=== PATIENT | female | born 1950 | race Caucasian/White ===

== ENCOUNTER 2019-10-01 07:17 | Inpatient (IN) ==
[2019-10-01] MEDS ORDERED: CeFAZolin Syr 2,000MG/20 ML 2,000 MG/20 ML SYRINGE IVPB ONE (07:48)
[2019-10-01] MEDS ORDERED: Albuterol 2.5 MG/3 ML NEBULIZER IH PRN (07:48)
[2019-10-01] MEDS ORDERED: *HR* Promethazine 25 MG/ML VIAL IVP PRN (07:50)
[2019-10-01] MEDS ORDERED: Ketorolac 30 MG/ML VIAL IVP ONE (07:50)
[2019-10-01] MEDS ORDERED: Ondansetron 4 MG/2 ML VIAL IVP ONE (07:50)
[2019-10-01] MEDS ORDERED: *HR* HYDROmorphone PF 0.5 MG/0.5 ML SYRINGE IVP PRN (07:50)
[2019-10-01] MEDS ORDERED: Ringers Solution, Lactated 1,000 ML IVC SCH (08:00)
[2019-10-01] MEDS ORDERED: ROPIVACAINE/PF/NS 0.25% 1 EACH SYRINGE INTRAART ONE (08:15)
[2019-10-01] MEDS ORDERED: Dexamethasone 4 MG/ML VIAL ONE ×2 (08:15→08:34)
[2019-10-01] MEDS ORDERED: Ropivacaine/PF 0.5% 30 ML VIAL ONE (08:15)
[2019-10-01] MEDS ORDERED: *HR* FentaNYL (PF) 100 MCG/2 ML VIAL ONE ×2 (08:33→09:48)
[2019-10-01] MEDS ORDERED: Lidocaine -MPF 2% 2 ML VIAL ONE ×2 (08:34→10:08)
[2019-10-01] MEDS ORDERED: Ondansetron 4 MG/2 ML VIAL ONE (08:34)
[2019-10-01] MEDS ORDERED: *HR* Succinylcholine 200 MG/10 ML VIAL IVP ONE (08:34)
[2019-10-01] MEDS ORDERED: *HR* Propofol 200 MG/20 ML VIAL IVP ONE (08:34)
[2019-10-01] MEDS ORDERED: Ethanol\\Acetic Acid\\Na Ace\\Ben 1,000 ML IRRIG.SOLN IR ONE (09:40)
[2019-10-01] MEDS ORDERED: *HR* PHENYLEPHRINE 1,000 MCG/10 ML SYRINGE IVP ONE (10:38)
[2019-10-01] MEDS ORDERED: EPHEDrine 50 MG/ML VIAL ONE (10:59)
[2019-10-01 12:04] LABS: Hematocrit 43.2 % (35.3-44.9); Hemoglobin 13.7 g/dL (11.5-15.4)
[2019-10-01] MEDS ORDERED: Ondansetron 4 MG/2 ML VIAL IVP PRN (12:40)
[2019-10-01] MEDS ORDERED: MOM Conc 10 ML UD.LIQ PO PRN (12:40)
[2019-10-01] MEDS ORDERED: D5% in Water 1,000 ML IVC PRN (12:40)
[2019-10-01] MEDS ORDERED: Sennosides 8.6 MG TABLET PO PRN (12:40)
[2019-10-01] MEDS ORDERED: *HR* Dextrose 50 % in Water (Syg) 50 ML SYRINGE IVP PRN (12:40)
[2019-10-01] MEDS ORDERED: Naloxone 0.4 MG/ML INJ IVP PRN (12:40)
[2019-10-01] MEDS ORDERED: Dextrose Gel 15 GM/37.5 ML TUBE PO PRN ×2 (12:40)
[2019-10-01] MEDS ORDERED: *HR* HYDROcodone/Acet 5/325 mg TABLET PO PRN (12:40)
[2019-10-01] MEDS ORDERED: *HR* HYDROcodone/Acet 10/325 mg TABLET PO PRN (12:40)
[2019-10-01] MEDS ORDERED: Acetaminophen 325 MG TABLET PO PRN (12:40)
[2019-10-01] MEDS: Insulin LISPRO 300 UNITS/3 ML VIAL SQ SCH ×3 (14:59→21:17)
[2019-10-01] MEDS: Carbidopa/Levodopa 25/100 TABLET PO SCH ×2 (16:28→19:21)
[2019-10-01] MEDS: *HR* Enoxaparin 30 MG/0.3 ML SYRINGE SQ SCH (16:28)
[2019-10-01] MEDS: ceFAZolin 2,000 MG in 0.9 % Sodium Chloride 100 ML IVPB SCH ×2 (16:29→22:47)
[2019-10-01] MEDS ORDERED: *HR* Enoxaparin 30 MG/0.3 ML SYRINGE SQ SCH (18:00)
[2019-10-01] MEDS: Ringers Solution, Lactated 1,000 ML IVC SCH (19:18)
[2019-10-02] MEDS: *HR* Enoxaparin 30 MG/0.3 ML SYRINGE SQ SCH ×2 (05:18→18:05)
[2019-10-02 06:36] LABS: Hematocrit 34.9 % (35.3-44.9)
[2019-10-02 06:43] LABS: Hemoglobin 11.2 g/dL (11.5-15.4)
[2019-10-02 06:52] LABS: BUN/Creatinine Ratio 30 (6-26); Blood Urea Nitrogen 23 mg/dL (8-23); Calcium 8.7 mg/dL (8.6-10.3); Carbon Dioxide 25 mEq/L (23-29); Chloride 109 mEq/L (98-107); Glucose 131 mg/dL (70-105); Osmolality,Calculated 293 (280-300); Potassium 3.8 mEq/L (3.5-5.1); Sodium 139 mEq/L (136-145); eGFR For African Americans > 60 (> 60); eGFR For Non-African Americans > 60 (> 60)
[2019-10-02] MEDS: Insulin LISPRO 300 UNITS/3 ML VIAL SQ SCH ×4 (07:56→21:16)
[2019-10-02] MEDS: Aspirin Enteric Coated 81 MG Tablet PO SCH (08:43)
[2019-10-02] MEDS: Carbidopa/Levodopa 25/100 TABLET PO SCH ×3 (08:44→21:15)
[2019-10-02] MEDS: Cholecalciferol (D-3) 1,000 UNIT (25MCG) TABLET PO SCH (08:44)
[2019-10-02] MEDS: Ringers Solution, Lactated 1,000 ML IVC SCH ×2 (15:15→16:35)
[2019-10-02] MEDS ORDERED: Isovue-370 500 ML BOTTLE IVP ONE (15:33)
[2019-10-02 17:11] LABS: Basophils % 0.3 %; Eosinophils # 0.1 K/mcL (0.0-0.6); Eosinophils % 0.7 %; Hematocrit 34.1 % (35.3-44.9); Hemoglobin 11.5 g/dL (11.5-15.4); Immature Granulocytes % 0.6 % (0-4); Lymphocytes # 2.9 K/mcL (0.6-4.6); Lymphocytes % 19.8 %; Mean Corpuscular HGB Conc 33.7 g/dL (31.6-35.5); Mean Corpuscular Hemoglobin 29.6 pg (28.0-33.3); Mean Corpuscular Volume 87.7 fL (83.0-100.0); Mean Platelet Volume 10.5 fL (9.4-12.4); Monocytes # 1.7 K/mcL (0.0-1.3); Monocytes % 11.2 %; Neutrophils # 9.9 K/mcL (1.6-8.9); Platelet Count 224 K/mcL (140-400); Red Blood Count 3.89 M/mcL (3.82-4.97); Red Cell Distribution Width 13.6 % (11.5-14.5); Segmented Neutrophils % 67.4 %; White Blood Count 14.7 K/mcL (4.3-11.1)
[2019-10-03] MEDS: *HR* Enoxaparin 30 MG/0.3 ML SYRINGE SQ SCH ×2 (05:38→18:04)
[2019-10-03] MEDS: Ringers Solution, Lactated 1,000 ML IVC SCH (05:39)
[2019-10-03] MEDS: Aspirin Enteric Coated 81 MG Tablet PO SCH (07:44)
[2019-10-03] MEDS: Insulin LISPRO 300 UNITS/3 ML VIAL SQ SCH ×4 (07:45→22:36)
[2019-10-03] MEDS: Carbidopa/Levodopa 25/100 TABLET PO SCH ×3 (07:45→22:34)
[2019-10-03] MEDS: Cholecalciferol (D-3) 1,000 UNIT (25MCG) TABLET PO SCH (07:47)
[2019-10-03] MEDS ORDERED: Bisacodyl 10 MG RECTAL SUPPOSITORY RC PRN (08:15)
[2019-10-03 08:41] LABS: Hematocrit 36.9 % (35.3-44.9)
[2019-10-03 08:48] LABS: BUN/Creatinine Ratio 23 (6-26); Blood Urea Nitrogen 16 mg/dL (8-23); Calcium 9.2 mg/dL (8.6-10.3); Carbon Dioxide 24 mEq/L (23-29); Chloride 108 mEq/L (98-107); Glucose 118 mg/dL (70-105); Osmolality,Calculated 290 (280-300); Potassium 4.6 mEq/L (3.5-5.1); Sodium 139 mEq/L (136-145); eGFR For African Americans > 60 (> 60); eGFR For Non-African Americans > 60 (> 60)
[2019-10-03] MEDS: polyethylene glycoL 3350 17 GM POWD.PACK PO SCH ×2 (09:44→22:35)
[2019-10-04] MEDS: *HR* Enoxaparin 30 MG/0.3 ML SYRINGE SQ SCH (06:16)
[2019-10-04 07:05] VITALS: BP 148/75
== END 2019-10-04 11:45 | DRG 483 ==
LOC: SAMDAY 07:17 → 3NENU 12:28
PROVIDERS: ADMIT Orthopaedic Surgery; ATTEND Orthopaedic Surgery